=== PATIENT | female | born 1985 | race Two or more races ===

== ENCOUNTER 2023-03-18 20:18 | Emergency (ER) | payer OTHER ==
[~2023-03-18] VITALS: Ht 157.5 cm; Wt 77.1 kg
[2023-03-18] MEDS ORDERED: PRENA1 TRUE CO1 EACH PO (20:29)
[2023-03-18] MEDS ORDERED: MONTELUKAST SOD10 MG PO (20:29)
== END 2023-03-19 00:18 | disposition home or self-care (01) ==
LOC: ER 20:18
DX: M79.672 Pain in left foot (principal); N39.0 Urinary tract infection, site not specified

== ENCOUNTER 2023-10-04 21:57 | Inpatient (IN) | payer OTHER ==
[~2023-10-04] VITALS: Ht 157.5 cm; Wt 2.7 kg
[~2023-10-04 21:57] MED LIST: MONTELUKAST SOD10 MG PO; PRENA1 TRUE CO1 EACH PO
[2023-10-04] MEDS ORDERED: AMPICILLIN SODIUM 2,000 MG VIAL ONE (22:11)
[2023-10-04] MEDS ORDERED: RINGERS SOLUTION,LACTATED 1,000 ML IV SCH (22:15)
[2023-10-04] MEDS ORDERED: AMPICILLIN SODIUM 2,000 MG VIAL IV ONE (22:15)
[2023-10-04] MEDS ORDERED: ADULT LOW DOSE81 M1 PO (22:32)
[2023-10-04] MEDS ORDERED: ZYRTEC10 MG PO (22:32)
[2023-10-04] MEDS ORDERED: FOLIC ACID0.8 M1 PO (22:32)
[2023-10-04 23:58] LABS: HEMATOCRIT 29.9 % (36.0-45.00); MEAN CELL VOLUME 84.4 fL (80.00-100.00); MEAN CORPUSCULAR HGB CONC 33.8 g/dl (32.0-36.0); PLATELET COUNT 322 K/uL (150-450); RED BLOOD COUNT 3.55 M/uL (4.00-6.00); RED CELL DISTRIBUTION WIDTH 14.3 % (11.5-14.5)
[2023-10-04 23:59] LABS: URINE BILIRRUBIN Negative (NEGATIVE); URINE BLOOD Moderate; URINE COLOR Yellow; URINE GLUCOSE Negative (NEGATIVE); URINE LEUKOCYTE Negative; URINE NITRATE Negative; URINE UROBILINOGEN 0.2 E.U./dl
[2023-10-05 00:03] LABS: URINE BACTERIA 647.6 uL (0.0-1933); URINE EPITHELIAL CELLS 73.5 uL (0.0-38.8); URINE RBC 665.1 uL (0.0-20.8); URINE WBC 22.1 uL (0.0-23.2)
[2023-10-05 00:15] LABS: HEMOGLOBIN 10.1 g/dL (12.0-15.00); MEAN CORPUSCULAR HEMOGLOBIN 28.4 pg (27.00-32.0)
[2023-10-05 00:19] LABS: INR < 0.93; PARTIAL THROMBOPLASTIN TIME 28.8 SECONDS (22.0-34.0); PROTHROMBIN TIME 9.6 SECONDS (9.0-11.5)
[2023-10-05 00:25] LABS: CALCIUM 8.9 mg/dL (8.5-10.1); CREATININE SERUM 0.42 mg/dL (0.55-1.02); GFR 170.71; POTASSIUM 3.99 mEq/L (3.5-5.1)
[2023-10-05 00:42] LABS: URINE APPEARANCE CLOUDY; URINE PROTEIN 100 (NEGATIVE)
[2023-10-05] MEDS ORDERED: AMPICILLIN SODIUM 1,000 MG VIAL IV SCH (01:00)
[2023-10-05] MEDS ORDERED: OXYTOCIN 500 ML IV SCH (08:45)
[2023-10-05 09:00] LABS: ALT/SGPT 17 U/L (12-78); AST/SGOT 13 U/L (15-37); LDH 124 U/L (84-246)
[2023-10-05] MEDS ORDERED: ERYTHROMYCIN BASE 3.5 GM OINT...G. OP ONE (13:19)
[2023-10-05] MEDS ORDERED: MORPHINE SULFATE 4 MG/ML CARTRIDGE IV PRN (15:15)
[2023-10-05] MEDS ORDERED: ERYTHROMYCIN BASE 1 GM TUBE OP ONE (15:15)
[2023-10-05] MEDS ORDERED: OXYTOCIN 10 UNITS/ML VIAL IV ONE (15:15)
[2023-10-05] MEDS ORDERED: OXYTOCIN 1,000 ML IV SCH (16:15)
[2023-10-05] MEDS ORDERED: RINGERS SOLUTION,LACTATED 1,000 ML IV SCH (16:15)
[2023-10-05 16:40] LABS: ABG PO2 22.6 mmHg (80-100); ABG pCO2 43.3 mmHg (35-45); BASE EXCESS -4.2 mmol/l; BICARBONATE 21.8 mmol/l (23-25); SaO2 32.4 %; Tco2 23.2 mmol/l; o2 21 %
[2023-10-05] MEDS ORDERED: OXYTOCIN 10 UNITS/ML VIAL ONE ×2 (16:58)
[2023-10-05 17:26] LABS: HEMATOCRIT 31.2 % (36.0-45.00); HEMOGLOBIN 10.4 g/dL (12.0-15.00); MEAN CELL VOLUME 83.5 fL (80.00-100.00); MEAN CORPUSCULAR HEMOGLOBIN 27.7 pg (27.00-32.0); MEAN CORPUSCULAR HGB CONC 33.2 g/dl (32.0-36.0); PLATELET COUNT 304 K/uL (150-450); RED BLOOD COUNT 3.73 M/uL (4.00-6.00); RED CELL DISTRIBUTION WIDTH 14.3 % (11.5-14.5)
[2023-10-05] MEDS ORDERED: SIMETHICONE 125 MG CAPSULE PO SCH (18:00)
[2023-10-05] MEDS ORDERED: SENNOSIDES 1 TAB TABLET PO SCH (21:00)
[2023-10-06] MEDS ORDERED: IBUprofen 800 MG TABLET PO PRN (09:00)
== END 2023-10-08 15:17 | disposition home or self-care (01) | DRG 788 ==
LOC: LDR 21:57 → O/R 10-05 13:41 → OB/GYN 10-05 15:39
PROVIDERS: ADMIT Obstetrics & Gynecology; ATTEND Obstetrics & Gynecology
PROC: 4A1HXCZ Monitoring of Products of Conception, Cardiac Rate, External Approach (ICD-10-PCS; 2023-10-04)
PROC: 10D00Z1 Extraction of Products of Conception, Low, Open Approach (ICD-10-PCS; principal; 2023-10-05 13:30)
DX: O14.04 Mild to moderate pre-eclampsia, complicating childbirth (principal); O42.02 Full-term premature rupture of membranes, onset of labor within 24 hours of rupture; Z3A.38 38 weeks gestation of pregnancy; Z37.0 Single live birth; Z20.822 Contact with and (suspected) exposure to COVID-19

== ENCOUNTER 2023-10-16 19:51 | Emergency (ER) | payer OTHER ==
[~2023-10-16] VITALS: Ht 157.5 cm; Wt 76.7 kg
[~2023-10-16 19:51] MED LIST changes: +ADULT LOW DOSE81 M1 PO; +FOLIC ACID0.8 M1 PO; +ZYRTEC10 MG PO
[2023-10-16] MEDS ORDERED: ZYRTEC10 M3 PO (20:13)
[2023-10-16] MEDS ORDERED: PROBIOTIC250 MG PO (20:14)
[2023-10-16 22:26] LABS: URINE APPEARANCE Cloudy; URINE BILIRRUBIN Negative (NEGATIVE); URINE BLOOD Large; URINE COLOR Yellow; URINE GLUCOSE Negative (NEGATIVE); URINE LEUKOCYTE Large; URINE NITRATE Negative; URINE PROTEIN Negative (NEGATIVE); URINE UROBILINOGEN 0.2 E.U./dl
[2023-10-16 22:29] LABS: URINE BACTERIA 2417.8 uL (0.0-1933); URINE EPITHELIAL CELLS 7.4 uL (0.0-38.8); URINE RBC 2.8 uL (0.0-20.8); URINE WBC 773.6 uL (0.0-23.2)
[2023-10-16 22:33] LABS: HEMATOCRIT 30.7 % (36.0-45.00); HEMOGLOBIN 10.6 g/dL (12.0-15.00); MEAN CELL VOLUME 83.9 fL (80.00-100.00); MEAN CORPUSCULAR HEMOGLOBIN 28.9 pg (27.00-32.0); MEAN CORPUSCULAR HGB CONC 34.4 g/dl (32.0-36.0); PLATELET COUNT 354 K/uL (150-450); RED BLOOD COUNT 3.65 M/uL (4.00-6.00); RED CELL DISTRIBUTION WIDTH 14.7 % (11.5-14.5)
[2023-10-16 23:48] LABS: CALCIUM 8.6 mg/dL (8.5-10.1); CREATININE SERUM 0.54 mg/dL (0.55-1.02); GFR 127.74; POTASSIUM 3.56 mEq/L (3.5-5.1)
[2023-10-17] MEDS ORDERED: MACRODANTIN100 M1 PO (01:30)
[2023-10-17] MEDS ORDERED: CEFTRIAXONE SODIUM 1,000 MG VIAL IV ONE (01:45)
== END 2023-10-17 01:37 | disposition home or self-care (01) ==
LOC: ER 19:52
PROVIDERS: General Practice
DX: N39.0 Urinary tract infection, site not specified (principal); D18.03 Hemangioma of intra-abdominal structures; K59.00 Constipation, unspecified; N20.0 Calculus of kidney